=== PATIENT | male | born 1975 | race Two or more races ===

== ENCOUNTER 2018-01-03 12:52 | Outpatient (CLI) | payer OTHER | END 2018-01-03 23:59 | disposition home or self-care (01) | LOC: WOU 12:52 | PROVIDERS: ATTEND Podiatrist Foot & Ankle Surgery | DX: M72.2 Plantar fascial fibromatosis (principal); M21.42 Flat foot [pes planus] (acquired), left foot; M21.41 Flat foot [pes planus] (acquired), right foot; M77.52 Other enthesopathy of left foot and ankle; M77.51 Other enthesopathy of right foot and ankle | CPT/HCPCS: G0463; Z7610 ==

== ENCOUNTER 2018-03-16 12:14 | Outpatient (CLI) | payer OTHER | END 2018-03-16 23:59 | disposition home or self-care (01) | LOC: WOU 12:14 | PROVIDERS: ATTEND Podiatrist Foot & Ankle Surgery | DX: M72.2 Plantar fascial fibromatosis (principal); R60.0 Localized edema; Z79.899 Other long term (current) drug therapy | CPT/HCPCS: G0463; Z7610 ==

== ENCOUNTER 2018-05-22 11:35 | Outpatient (CLI) | payer OTHER | END 2018-05-22 23:59 | disposition home or self-care (01) | LOC: WOU 11:35 | PROVIDERS: ATTEND Podiatrist Foot & Ankle Surgery | DX: G57.53 Tarsal tunnel syndrome, bilateral lower limbs (principal); M72.2 Plantar fascial fibromatosis | CPT/HCPCS: G0463 ==

== ENCOUNTER 2018-12-19 14:00 | Outpatient (CLI) | payer OTHER | END 2018-12-19 23:59 | disposition home or self-care (01) | LOC: WOU 14:00 | PROVIDERS: ATTEND Podiatrist Foot & Ankle Surgery | DX: L84 Corns and callosities (principal); M72.2 Plantar fascial fibromatosis; M79.671 Pain in right foot; M79.672 Pain in left foot | CPT/HCPCS: G0463 ==

== ENCOUNTER 2022-03-15 11:32 | Outpatient (CLI) | payer MEDICARE, OTHER | END 2022-03-15 23:59 | disposition home or self-care (01) | LOC: WOU 11:32 | PROVIDERS: ATTEND Podiatrist Foot & Ankle Surgery | DX: S96.112A Strain of muscle and tendon of long extensor muscle of toe at ankle and foot level, left foot, initial encounter (principal); X58.XXXA Exposure to other specified factors, initial encounter; Y93.79 Activity, other specified sports and athletics; Y92.9 Unspecified place or not applicable; M71.572 Other bursitis, not elsewhere classified, left ankle and foot; M79.672 Pain in left foot; M72.2 Plantar fascial fibromatosis; R60.0 Localized edema | CPT/HCPCS: G0463 ==

== ENCOUNTER 2022-03-22 09:00 | Outpatient (CLI) | payer MEDICARE, OTHER | END 2022-03-22 23:59 | disposition home or self-care (01) | LOC: WOU 09:00 | PROVIDERS: ATTEND Podiatrist Foot & Ankle Surgery | DX: S92.332D Displaced fracture of third metatarsal bone, left foot, subsequent encounter for fracture with routine healing (principal); S96.112D Strain of muscle and tendon of long extensor muscle of toe at ankle and foot level, left foot, subsequent encounter; X58.XXXD Exposure to other specified factors, subsequent encounter; G57.62 Lesion of plantar nerve, left lower limb; M71.572 Other bursitis, not elsewhere classified, left ankle and foot; M79.672 Pain in left foot | CPT/HCPCS: G0463 ==